=== PATIENT | male | born 1965 | race Hispanic/Latino ===

== ENCOUNTER 2020-09-13 07:13 | Day surgery (SDC) | payer OTHER ==
[2020-09-13] MEDS ORDERED: ASPIRIN EC 325 MG TAB PO NR (07:47)
[2020-09-13] MEDS ORDERED: HEPARIN/NS 5000 UNIT/500ML 1,000 ML IR ONE (08:07)
[2020-09-13] MEDS ORDERED: LIDOCAINE (2%) 20 MG/1 ML VIAL 20 ML MDV INFILTRATI ONE (08:09)
[2020-09-13 08:29] LABS: Basophils % (Auto) 0.4 % (0.0-1.8); Eosinophils % (Auto) 0.7 % (0.0-4.3); Lymphocytes # (Auto) 2.2 K/mm3 (1.2-5.4); Lymphocytes % (Auto) 29.9 % (13.4-35.0); Mean Corpuscular HGB Conc 36 % (32-34); Mean Corpuscular Volume 93 fl (84-94); Monocytes # (Auto) 0.5 K/mm3 (0.0-0.8); Monocytes % (Auto) 7.1 % (0.0-7.3); Platelet Count 193 K/mm3 (140-440); Red Blood Count 4.22 M/mm3 (3.65-5.03); Red Cell Distribution Width 12.5 % (13.2-15.2)
[2020-09-13 08:32] LABS: Hematocrit 39.2 % (35.5-45.6); Hemoglobin 14.1 gm/dl (11.8-15.2)
[2020-09-13] MEDS: SODIUM CHLORIDE 0.9% 500 ML 500 ML IV SCH ×2 (08:32→10:08)
[2020-09-13 08:40] LABS: INR 0.99 (0.87-1.13)
[2020-09-13 08:41] LABS: Partial Thromboplastin Time 29.2 Sec. (24.2-36.6)
[2020-09-13 08:45] LABS: BUN/Creatinine Ratio 19; Blood Urea Nitrogen 21 mg/dL (9-20); Calcium 9.1 mg/dL (8.4-10.2); Hemolysis Index 10
[2020-09-13] MEDS ORDERED: MIDAZOLAM 2 MG/2 ML INJ ONE (10:06)
[2020-09-13] MEDS ORDERED: fentaNYL 100 MCG/2 ML INJ ONE (10:06)
[2020-09-13] MEDS: NITROGLYCERIN SYRINGE 3 ML ONE ×2 (10:11→10:15)
[2020-09-13] MEDS: VERAPAMIL 5 MG/2 ML INJ ONE ×2 (10:15→10:20)
[2020-09-13] MEDS: HEPARIN 10,000 UNITS/10 ML VIAL ONE ×2 (10:15→10:20)
[2020-09-13] MEDS ORDERED: traMADol 50 MG TAB PO PRN (10:37)
--- NOTE | 2020-09-13 10:40 | Short Stay Summary ---
Short Stay Documentation Date of service: 09/13/20 - History H&P: obtained from office - Allergies and Medications Current Medications: Allergies Sulfa (Sulfonamide Antibiotics) Allergy (Verified 09/13/20 07:47) Rash Home Medications Medication Instructions Recorded Confirmed Last Taken Type Olmesartan/Hydrochlorothiazide 1 each PO DAILY 09/13/20 09/13/20 09/13/20 History [Olmesartan-Hctz 40-25 mg Tab] Active Medications Sodium Chloride (Nacl 0.9% 500 Ml) 500 mls @ 50 mls/hr IV DIRECT MYNOR Stop: 09/13/20 17:59 Last Admin: 09/13/20 08:32 Dose: 50 mls/hr Documented by: - Brief post op/procedure progress note Date of procedure: 09/13/20 Pre-op diagnosis: chest pain Post-op diagnosis: same Procedure: see report Anesthesia: local Estimated blood loss: minimal Pathology: none - Disposition Condition at discharge: Good Disposition: DC-01 TO HOME OR SELFCARE - Discharge Diagnoses (1) CAD (coronary artery disease) Status: Acute Qualifiers: Coronary Disease-Associated Artery/Lesion type: [place] artery [place] vs. transplanted heart: [place] heart Associated angina: with stable angina Qualified Code(s): I25.118 - Atherosclerotic heart disease of [place] coronary artery with other forms of angina pectoris (2) Chest pain due to CAD Status: Chronic (3) Hypertension Status: Chronic Qualifiers: Hypertension type: essential hypertension Qualified Code(s): I10 - Essential (primary) hypertension (4) Hyperlipemia, mixed Status: Chronic Short Stay Discharge Plan Activity: advance as tolerated Wound: keep clean and dry Follow up with: JAXSON NICK [Other] - 7 Days
--- NOTE | 2020-09-13 10:52 | Electrocardiograph Report ---
[facility] Test Date: 2020-09-13 Test Time: 08:29:55 Pat Name: JOSEPH STANTON Department: Room: Gender: M Director [employer]: AMANDA : 1965 Requested By: MP ARMANDO Order Number: [id number] Reading MD: Mp Armando Measurements Intervals [place] Rate: 63 P: -24 SC: 183 QRS: -35 QRSD: 98 T: -4 QT: 416 QTc: 425 Interpretive Statements Sinus rhythm No previous ECG available for comparison Electronically Signed On 09-13-2020 10:52:22 EDT by Mp Armando
[2020-09-13] MEDS ORDERED: HYDROcodone/ACETAMINOPHEN 5-325 MG TAB PO PRN (11:00)
--- NOTE | 2020-09-13 11:30 | Cardiac Catherization Report ---
DATE OF SERVICE: 09/13/2020 LEFT HEART CATHETERIZATION CLINICAL INFORMATION: This is a 54-year-old gentleman with obesity, hyperlipidemia, hypertension, having recurrent chest pain despite medical therapy with nitrates, here for left heart catheterization with normal LV function. Procedure was done with moderate sedation, started 10:10 and finished at 10:25, 50 minutes of moderate sedation noted. DESCRIPTION OF PROCEDURE: Procedure was done via the right radial artery, sterile technique, local anesthesia. A 6-[place] radial sheath was inserted. Left system engaged with a JL3.5 catheter. Left main is large and patent, bifurcates to a medium to large caliber LAD. Proximal and mid diagonal 1 is small to medium caliber patent. After that, there is a 12-14 mm worth of stenosis approximately 50%. The rest of the LAD is patent. Diagonal 2 small caliber, patent. Circumflex small caliber vessel, patent. OM1 small caliber, patent. RCA was engaged with a JR4 catheter, is a large, dominant vessel with large PDA and PLV covering the whole lateral wall. LV gram done in [place] and [place] view shows normal LV function, EF 55-60%. LVEDP 10 mmHg. LV is 122, aortic is 122/80. No gradient across the aortic valve on pullback. A 5 [place] catheters all taken over a guidewire; 6-[place] radial sheath discontinued. Radial band applied. No hematoma, no bleeding.. SUMMARY: Left main, patent. LAD mid 50%. Circumflex, patent. RCA large, dominant. PDA and PLV large, dominant covers the lateral wall. Normal LV function. Continue medical management and discussed in detail with the patient and the patient's family. TID: [id number] RECEIPT: [id number] KEE/DEXTER
[2020-09-13 14:46] VITALS: BP 109/79
[2020-09-14] MEDS ORDERED: ASPIRIN 81 MG TAB CHEW PO SCH (10:00)
== END 2020-09-13 14:15 | disposition home or self-care (01) ==
LOC: CATHLABREC 07:13
PROVIDERS: ATTEND Internal Medicine
DX: R07.89 Other chest pain (principal); I25.119 Atherosclerotic heart disease of native coronary artery with unspecified angina pectoris; I10 Essential (primary) hypertension; E78.2 Mixed hyperlipidemia; K21.9 Gastro-esophageal reflux disease without esophagitis; Z88.2 Allergy status to sulfonamides; Z79.899 Other long term (current) drug therapy; Z98.890 Other specified postprocedural states
CPT/HCPCS: 36415; 80048; 85025; 85610; 85730; 93005; 93458; 99156; C1894; J1644; J2250; J3010; J7040; Q9967